=== PATIENT | male | born 1965 | race Caucasian/White ===

== ENCOUNTER 2016-03-11 16:08 | Emergency (ER) | payer OTHER ==
[~2016-03-11 16:08] MED LIST: FLAX100038 PO; INUL2TAB8 PO; LISI-567 PO; MULT-1018 PO; SAW450CA4 PO
--- NOTE | 2016-03-11 16:11 | ED.REPORT ---
HPI-General Illness Date of Service Mar 11, 2016 ED Provider: Dr. Pham Pt is a 50 y/o male w/ a hx of scoliosis, lordosis, HTN, presenting to the ED via EMS c/o ground level fall onset prior to arrival. He stepped off a curb awkwardly and landed on his left front side. He c/o upper left chest pain. He denies SOB, abdominal pain, head injury, LOC, extremity pain, hip or pelvis pain , back pain, neck pain, nausea, vomiting, syncope. Nursing Notes Stated Complaint: GLF Nursing Notes Reviewed: Yes Allergies: Coded Allergies: No Known Allergies (Verified , 11/10/15) Stated by patient Scheduled Flaxseed Oil ([place]-3 Flaxseed Oil) 1,000 Mg Capsule 1,000 MG PO BID Lisinopril (Lisinopril) 20 Mg Tablet 20 MG PO DAILY Multivitamin (Multi Vitamin Daily) 1 Each Tablet 1 EACH PO DAILY Saw [place] Fruit (Saw [place]) 450 Mg Capsule 450 MG PO BID please verify dosage Scheduled PRN Ibuprofen (Ibuprofen) 600 Mg Tablet 600 MG PO QID PRN PRN For Pain Inulin (Fiber Gummies) 2 Gram Tab.chew 2 GM PO DAILY PRN PRN prn General Time Seen by MD: 16:11 Chief Complaint Other (ground level fall) Hx Obtained From: Patient, EMS Arrived By: Ambulance Sudden in Onset?: Yes Onset Occurred: Just prior to arrival Symptom Duration: Since onset Caused by: Accidental, Fall on ground Location: : Chest (L) Quality: Painful Severity: Current: Moderate Severity: Maximum: Moderate Past Medical History Past Medical History Hypertension Peptic ulcer disease GERD Anxiety Scoliosis Lordosis Hydrocephalus Past Surgical History Peritoneal shunts Brain shunt Back surgery Smoking History Unknown if Ever Smoker Social History Alcohol Use: "Social" Drug Use: Denies drug use Ambulatory Status Independent Review of Systems Full Review of Systems Constitutional: Denies: Chills, Fever Respiratory: Denies: Non-productive cough, Shortness of breath Cardiovascular: Reports: Chest pain GI: Denies: Abdominal pain, Nausea, Vomiting Musculoskeletal: Denies: Back pain, Extremity pain, Joint pain, Neck pain Neurologic: Denies: Change LOC, Confusion, Headache, Lightheaded, Syncope Complete sys rev & neg: except as marked. Physical Exam Vital Signs Vital Signs Date Time Temp Pulse Resp B/P Pulse Ox O2 Delivery O2 Flow Rate FiO2 03/11/16 16:18 36.1 86 17 134/94 99 Room Air Initial VS: Reviewed, Vital signs normal Head / Eyes: Atraumatic, Normocephalic, PERRL ENT: Mucous membranes moist, Conjunctiva normal, No scleral icterus Neck: Supple, Non-tender, Full range of motion Cardiovascular: Regular rate & rhythm, Heart sounds normal, Intact distal pulses Skin: Warm, Dry, No cyanosis Neurologic: Alert, Oriented, Nonfocal Psychiatric: Mood/affect normal, Behavior normal, Normal thought content General/Constitutional: Awake, Alert, No acute distress, Well appearing, Cooperative, Not toxic appearing Respiratory / Chest: Atraumatic, Breath sounds NL, Breath sounds = bilat, No respiratory distress, No rales, No rhonchi, No wheezing, No retractions, No stridor, No chest wall deformity, No crepitus Tender over anterior left chest just under the inferior border of the pectoralis Upper Extremities Upper Extremity / MS: Atraumatic, Full range of motion, No swelling, Non-tender , No erythema, No deformity, Neurologic intact, Vascular intact, No ligamentous injury, Tendon function NL, No compartment syndrome, No circumferential injury, No clubbing/cyanosis, No edema Lower Extremity / Pelvis / MS: Full range of motion, Non-tender, No deformity, Neurologic intact, Vascular intact, No ligamentous injury, Tendon function NL, No compartment syndrome, No circumferential injury, Pelvis stable, Pelvis non- tender 2 cm oval abrasion anterior left knee, non-tender Interpretation & Diagnostics Lab Results Interpretation Test 03/11/16 17:09 Hold Purple Top Tube Received (Received) Hold Blue Top Tube Received (Received) Hold Red Top Tube Received (Received) Hold [place] Top Tube Received (Received) X-Ray Interpretation Xray Interpretation: IMPRESSION: A prominent convex rightward scoliosis distorts the chest to the degree that detection of rib fractures likely would be reduced. However, no fracture or underlying pneumothorax is found. Ventriculostomy catheter noted on the right. Dictated by: Jacob Gallardo M.D. on 03/11/2016 at 17:02 Approved by: Jacob Gallardo M.D. on 03/11/2016 at 17:04 Study Performed: Ribs with focused left ribs, 2 views Interpretation / Wet Read by: Interpret - Radiologist Re-Eval/Medical Decision Med Decision/Clinical Course 50-year-old with significant scoliosis presents after a low level fall from a curb, incurring some tenderness and rib injury on the left anterior ribs. X-rays negative for hemothorax or pneumothorax, no fractures seen. Home with routine instructions and ibuprofen. Time of Eval: 17:37 Patient Status: Condition improved, Pain improved Re-Evaluation/Progress Note: Pt rechecked. Discussed negative imaging results. Informed pt of plan for treatment. Pt understands and agrees with plan for treatment. F/U instructions and RTER warnings given. All questions addressed. Counseled Regarding: Diagnosis, Need for follow-up, When/why to return to ED Discharge & Departure Primary Impression: Contusion of rib on left side Encounter type: initial encounter Qualified Code: S20.212A - Contusion of left front wall of thorax, initial encounter Disposition: Home Discharge Condition All VS Reviewed: Yes Condition: Stable Patient Instructions: Rib Fracture (ED) Additional Instructions: We see no evidence of fracture. Rib injuries are treated as a fracture in general, whether fractured or not. There is no evidence of a dropped lung, or bleeding, or other complication. Ibuprofen as needed for pain. Follow-up with your doctor in the office. Return if any immediate issues, particularly shortness of breath or other unexpected symptoms. Referrals: Vern Higuera MD (PCP) Jhonyibe Attestation Portions of this note were transcribed by Juan Alberto Foy. I, Dr. Pham personally performed the history, physical exam and medical decision-making; I reviewed and confirmed the accuracy of the information in the transcribed note. Signed by Maci Medina, 03/11/16 - 1700 copies to: Vern Higuera MD, Christopher W MD Mar 11, 2016 16:11 JUAN ALBERTO FOY Mar 11, 2016 16:25
[2016-03-11 16:18] VITALS: BP 134/94; PULSE 86; RESP 17; O2SAT 99
--- NOTE | 2016-03-11 17:06 | DRSVH ---
PROCEDURE: X-RAY LEFT RIBS INCLUDEING PA CHEST, MINUMUM THREE VIEWS ([id number]) INDICATIONS: fall onto anterior left chest TECHNIQUE: 2 views of the left ribs were acquired, along with a single view chest. COMPARISON: [facility], [facility]ERR[facility] W&W/O CONTRAST, 10/22/2013, 18:26. FINDINGS: Surgical changes and devices: A catheter like device overlies the right chest and neck and extends in feriorly coiling within the peritoneal space, presumably a ventriculostomy catheter.. Bones and chest wall: No fractures or dislocations. No suspicious bony lesions. Overlying soft tis sues appear unremarkable. Quality of visualization is somewhat limited by prominent convex rightward scoliosis centered at the junction of the middle and lower thirds of the thoracic spine Lungs and pleura: No pleural effusions or pneumothorax. Lungs appear clear. Mediastinum: Mediastinal contours appear normal. Heart size is normal. IMPRESSION: A prominent convex rightward scoliosis distorts the chest to the degree that detection of rib fractures likely would be reduced. However, no fracture or underlying pneumothorax is found. V entriculostomy catheter noted on the right. Dictated by: Jacob Gallardo M.D. on 03/11/2016 at 17:02 Approved by: Jacob Gallardo M.D. on 03/11/2016 at 17:04
[2016-03-11] MEDS ORDERED: IBUP-1827 PO (17:34)
== END 2016-03-11 17:45 | disposition home or self-care (01) ==
LOC: SED 16:08
DX: S20.212A Contusion of left front wall of thorax, initial encounter (principal); W18.30XA Fall on same level, unspecified, initial encounter; Y93.89 Activity, other specified; Y92.69 Other specified industrial and construction area as the place of occurrence of the external cause; Y99.0 Civilian activity done for income or pay; I10 Essential (primary) hypertension; K21.9 Gastro-esophageal reflux disease without esophagitis; Z98.890 Other specified postprocedural states